=== PATIENT | female | born 1935 ===

== ENCOUNTER 2017-08-26 09:21 | Emergency (ER) | payer MEDICARE, OTHER ==
--- NOTE | 2017-08-26 10:09 | C.PDOC ---
History Of Present Illness 81 year old female presents to the ED for evaluation of constipation which began around 1.5 weeks ago. Patient notes she normally has daily bowel movements. Patient saw her PMD last week and was prescribed Linzess. Patient notes she had mild improvement but she still feels constipated and bloated. Patient also states she has been experiencing occasional chest pain for the past 2 weeks. Patient notes the pain occurs for few minutes and then self- resolved. Patient denies chest pain currently. She also denies fever, chill, and shortness of breath. History obtained by patient's son due to language barrier. Time Seen by Provider: 08/26/17 09:26 Chief Complaint (Nursing): GI Problem History Per: Family (son ) History/Exam Limitations: language barrier Onset/Duration Of Symptoms: Other (1.5 weeks ) Current Symptoms Are (Timing): Still Present Additional History Per: Family Past Medical History Reviewed: Historical Data, Nursing Documentation, Vital Signs Vital Signs: Last Vital Signs Temp 98.2 F 08/26/17 13:10 Pulse 77 08/26/17 13:10 Resp 15 08/26/17 13:10 BP 172/91 H 08/26/17 13:10 Pulse Ox 96 08/26/17 16:01 - Medical History PMH: HTN Surgical History: No Surg Hx Family History: States: Unknown Family Hx - Social History Hx Alcohol Use: No Hx Substance Use: No - Immunization History Hx Tetanus Toxoid Vaccination: No Hx Influenza Vaccination: Yes Hx Pneumococcal Vaccination: Yes Review Of Systems Constitutional: Negative for: Fever, Chills Cardiovascular: Negative for: Chest Pain Respiratory: Negative for: Shortness of Breath Gastrointestinal: Positive for: Constipation Physical Exam - Physical Exam Appears: Non-toxic, No Acute Distress Skin: Normal Color, Warm, Dry Head: Atraumatic, Normacephalic Eye(s): bilateral: Normal Inspection, EOMI Nose: Normal Oral Mucosa: Moist Neck: Normal ROM, Supple Chest: Symmetrical, No Deformity, No Tenderness Cardiovascular: Rhythm Regular Respiratory: Normal Breath Sounds, No Rales, No Rhonchi, No Wheezing Gastrointestinal/Abdominal: Soft, No Tenderness, Distention, No Guarding, No Rebound Extremity: Normal ROM, Capillary Refill (less than 2 seconds ) Neurological/Psych: Oriented x3, Normal Speech, Normal Cognition ED Course And Treatment - Laboratory Results Result Diagrams: 08/26/17 10:06 08/26/17 10:06 ECG: Interpreted By Me (Dr matthew), Viewed By Me ECG Rhythm: Sinus Rhythm Rate From EC O2 Sat by Pulse Oximetry: 96 (on RA) Pulse Ox Interpretation: Normal Progress Note: Bloodwork, UA, Obstructive Series Abdomen, EKG ordered and reviewed. Aspirin PO, IV Fluids and Fleet Enema MA administered. Patient was able to have a large bowel movement in the ER and reports an improvement in her symptoms. Patient is resting comfortably, showing no signs of distress. Pt denies having any chest pain while in the ER. No SOb. Afebrile. Pt and son were offered admission for further evaluation but refused. Son verbalized understanding of risks and benefits. While pt was in ER, son went to Dr Paredes office and has a outpt appt and follow up plan. Instructed to return to ER if symtpoms persist or wrosen. Case discussed with Dr Chairez who agreed upon plan and dsicahrge. Case discussed with Dr Matthew, agreed upon plan and discharge. Disposition - Disposition Referrals: Basb Chairez MD [Staff Provider] - Disposition: HOME/ ROUTINE Disposition Time: 12:45 Condition: STABLE Additional Instructions: Follow up with primary medical doctor in 1-3 days without fail for further evaluation. Take medications as prescribed. Return to the emergency department at any time if symptoms persist or worsen. Instructions: Constipation, Adult (DC) Forms: [facility] (Slovak), (AMA) Informed Refusal - Clinical Impression Clinical Impression: Constipation, Chest pain - PA / [employer] / Resident Statement MD/DO has reviewed & agrees with the documentation as recorded. - Scribe Statement The provider has reviewed the documentation as recorded by the Scribe (Kira Chairez) All medical record entries made by the Scribe were at my direction and personally dictated by me. I have reviewed the chart and agree that the record accurately reflects my personal performance of the history, physical exam, medical decision making, and the department course for this patient. I have also personally directed, reviewed, and agree with the discharge instructions and disposition.
[2017-08-26 10:15] LABS: BASO # 0.1 K/uL (0.0-0.2); BASO % 1.4 % (0.0-2.0); EOS # 0.2 K/uL (0.0-0.7); HEMOGLOBIN 11.9 g/dL (11.0-16.0); LYMPH # 1.7 K/uL (1.0-4.3); MEAN CELL VOLUME 87.3 fL (81.0-99.0); MEAN CORPUSCULAR HEMOGLOBIN 29.4 pg (27.0-31.0); MEAN CORPUSCULAR HGB CONC 33.7 g/dL (33.0-37.0); MEAN PLATELET VOLUME 8.1 fL (7.2-11.7); MONO # 0.4 K/uL (0.0-0.8); MONO % 7.2 % (0.0-10.0); NEUT # 3.3 K/uL (1.8-7.0); NEUT % 57.4 % (50.0-75.0); RBC 4.06 Mil/uL (3.80-5.20); RED CELL DISTRIBUTION WIDTH 12.9 % (11.5-14.5); WHITE BLOOD COUNT 5.7 K/uL (4.8-10.8)
[2017-08-26 10:30] LABS: ALB/GLOB RATIO 1.3 (1.0-2.1); ALBUMIN 4.1 g/dL (3.5-5.0); ALT/SGPT 21 U/L (9-52); AST/SGOT 30 U/L (14-36); BLOOD UREA NITROGEN 19 mg/dL (7-17); CALCIUM 9.5 mg/dl (8.6-10.4); GFR AFRICAN-AMERICAN > 60; GFR NON-AFRICAN AMERICAN > 60; LIPASE 192 U/L (23-300)
[2017-08-26] MEDS ORDERED: Sodium Chloride 0.9% 1,000 ML IV ONE (10:39)
[2017-08-26 10:41] LABS: CK-MB 1.45 ng/mL (0.0-3.38)
[2017-08-26 10:57] LABS: SQUAMOUS EPITHIAL 3 /hpf (0-5); URINE BACTERIA RARE (<OCC); URINE BILIRUBIN NEGATIVE (NEGATIVE); URINE BLOOD NEGATIVE (NEGATIVE); URINE CLARITY Clear (Clear); URINE COLOR Straw (YELLOW); URINE GLUCOSE (UA) NORMAL (Normal); URINE LEUKOCYTE ESTERASE NEG Leu/uL (Negative); URINE PROTEIN NEGATIVE (NEGATIVE); URINE UROBILINOGEN NORMAL mg/dL (0.2-1.0)
[2017-08-26] MEDS ORDERED: Sodium Chloride 0.9% 1,000 ML ONE (11:15)
[2017-08-26 11:45] VITALS: PULSE 77
--- NOTE | 2017-08-26 12:23 | RAD ---
PROCEDURE: Radiographs of the chest and abdomen (obstructive series) HISTORY: Abdominal pain COMPARISON: 09/13/2013. TECHNIQUE: AP radiograph of the chest, with upright and supine radiographs of the abdomen. FINDINGS: CHEST: Lungs: Well inflated and clear. Cardiovascular: Normal size heart. No pulmonary vascular congestion. Pleura: No pleural fluid. No pneumothorax. Other findings: None. ABDOMEN AND PELVIS: Bowel: There is large amount of stool in the colon. The bowel gas pattern is nonspecific. No evidence of mechanical obstruction. Free air: None. Bones: Within normal limits for the patient's age. Other findings: None. IMPRESSION: Constipation. Nonobstructive bowel gas pattern. Clear lungs.
[2017-08-26 12:47] VITALS: O2SAT 96
[2017-08-26 13:21] VITALS: BP 172/91; RESP 15; TEMP 98.2
== END 2017-08-26 13:20 | disposition home or self-care (01) ==
LOC: C.ER 09:21
DX: K59.00 Constipation, unspecified (principal); R07.9 Chest pain, unspecified
CPT/HCPCS: 74022; 80053; 81001; 82550; 82553; 83690; 84484; 85025; 96360; 99285; J7040